=== PATIENT | female | born 2005 | race Caucasian/White ===

== ENCOUNTER 2024-03-10 08:36 | Day surgery (SDC) | payer OTHER ==
[~2024-03-10] VITALS: Ht 149.9 cm; Wt 67.6 kg
[2024-03-10] MEDS ORDERED: fentaNYL citrate 0.05 MG/ML VIAL ONE (11:28)
[2024-03-10] MEDS ORDERED: MIDAZOLAM 2 MG/2 ML VIAL ONE ×2 (11:29→11:41)
[2024-03-10] MEDS: MIDAZOLAM 2 MG/2 ML VIAL IVP ONE (11:37)
[2024-03-10] MEDS: fentaNYL citrate 0.05 MG/ML VIAL IVP ONE (11:38)
[2024-03-10] MEDS: LIDOCAINE 2% 100 MG/5 ML UJET TP ONE (11:58)
== END 2024-03-10 13:02 | disposition home or self-care (01) ==
LOC: MDS 08:36 → MMU 08:51 → EDBD 11:40 → MDS 13:02
PROVIDERS: ATTEND Internal Medicine Gastroenterology
DX: R19.7 Diarrhea, unspecified (principal); K21.9 Gastro-esophageal reflux disease without esophagitis; K62.5 Hemorrhage of anus and rectum; Z90.89 Acquired absence of other organs
CPT/HCPCS: 43235; 45331; 88305; J2250; J3010; 45330